=== PATIENT | female | born 2000 | race Caucasian/White ===

== ENCOUNTER 2022-05-13 17:57 | Day surgery (SDC) | payer OTHER, SELFPAY ==
[2022-05-13] VITALS (13 sets, daily range): BP systolic 105–126; BP diastolic 63–74; PULSE 72–96; RESP 16–20; TEMP 36.3–37.7; O2SAT 96–100; BMI 57.0
--- NOTE | 2022-05-13 18:26 | CRLHL7_ITS ---
For Patients: As a result of the Century Cures Act, medical imaging exams and procedure reports are released immediately into your electronic medical record. You may view this report before your referring provider. If you have questions, please contact your health care provider. INDICATION: Abdominal pain. TECHNIQUE: CT abdomen and pelvis acquired with 83 cc Isovue 370 IV contrast. COMPARISON: None. FINDINGS: Lower chest: Unremarkable. Liver: Unremarkable. Normal in size and attenuation. No suspicious masses. Gallbladder and bile ducts: Unremarkable. No stones or inflammation. No biliary ductal dilatation. Spleen: Unremarkable. Normal in size. No masses. Adrenal glands: Unremarkable. No nodules. Pancreas: Unremarkable. No mass or inflammation. Kidneys: Unremarkable. No suspicious masses, stones, or hydronephrosis. GI tract: Dilated appendix measuring 9 mm. Mild mural hyperenhancement and surrounding fat stranding. 7 mm appendicolith. Findings consistent with acute appendicitis. Small and large bowel are normal in caliber. Moderate colonic stool burden. Lymph nodes: No lymphadenopathy. Vasculature: Unremarkable. Omentum/Peritoneum/Abdominal Wall: Unremarkable. No free air or significant free fluid. Pelvis: Unremarkable. Bones: Unremarkable for age. IMPRESSION: Acute appendicitis. Please note that all CT scans at this facility use dose modulation, iterative reconstruction, and/or weight-based dosing when appropriate to reduce radiation dose to as low as reasonably achievable. Dictated by Harry Santos MD @ 05/13/2022 7:35:37 PM (Electronically Signed)
--- NOTE | 2022-05-13 18:27 | ED_ITS ---
HPI - Abdominal Pain General Chief Complaint: Abdominal Pain Stated Complaint: Vomiting Diarrhea Time Seen by Provider: 05/13/22 18:05 History of Present Illness HPI narrative: This 21-year-old female comes in with abdominal pain that began yesterday. She has vomiting with nausea and diarrhea. She does not report any fevers but states that she has felt hot and sweaty at times. She states that she has not taken much food but when she did try to eat it made her symptoms worse. She states that the pain is constant and it is worse with movement. Related Data Home Medications Medication Instructions Recorded Confirmed No Known Home Medications 05/13/22 05/13/22 Allergies Allergy/AdvReac Type Severity Reaction Status Date / Time amoxicillin Allergy Hives Verified 05/13/22 18:47 Penicillins Allergy Hives Verified 05/13/22 18:47 Review of Systems Status of ROS Reports: 10 or more systems reviewed and unremarkable except as noted in History and below Narrative Constitutional: No fevers, no weight gain or loss. Eyes: No discharge. No vision changes. HENT: No congestion, no sore throat, no ear pain. Cardiovascular: No chest pain, no palpitations. Respiratory: No shortness of breath, no wheezes, no cough. Gastrointestinal: Abdominal pain, nausea, vomiting, and diarrhea. Genitourinary: No dysuria, no hematuria. Musculoskeletal: Normal range of motion. Skin: No rashes, no pruritis. Neurological: No dizziness, weakness, sensory change, speech change. Endo/Heme/Allergies: No bruising or bleeding. No polydipsia. Pysch: no suicidality, no anxiety, no insomnia. All other systems reviewed and are negative. [facility] Medical History (Updated 05/13/22 @ 20:03 by Red Brady MD) No significant past medical history Surgical History (Updated 05/13/22 @ 18:17 by Paula Lewis RN) No significant past surgical history Social History Smoking Status: Never smoker Do you use any of these nicotine containing products: None Second hand tobacco smoke exposure: No How often do you have a drink containing alcohol: monthly or less How often do you have six or more drinks on one occasion: Never AUDIT-C Alcohol total score: 1 Non-prescribed substance use: denies use service: No Exam Narrative: Exam Narrative: Constitutional: Well-developed, well-nourished . HEENT: Normocephalic, atraumatic. Neck: Normal range of motion. Nontender. Supple. Heart: Regular. No murmurs. Normal rate. Intact distal pulses. Lungs: Clear to auscultation. No chest discomfort. No wheezes, rhonchi, or rales. Abdomen: Decreased bowel sounds. Diffuse abdominal pain. Rebound tenderness is present. Genitalia: Deferred. Back: No midline tenderness. Normal range of motion. Extremities: Normal range of motion. No injury. Skin: Intact. No rash. Warm. No erythema or pallor. Neurologic: No altered sensation. No weakness. Alert and oriented. Psychiatric: No suicidality. No anxiety or depression. No insomnia. Nursing notes and vitals signs are reviewed. Const: Vital Signs, click to edit/add: Vital Signs - 24 hr 05/13/22 18:08 Temperature 97.6 F Pulse Rate [Pulse Oximeter] 96 Respiratory Rate 18 Blood Pressure [Ri ght Upper Arm] 123/73 Pulse Oximetry 99 Oxygen Delivery Me thod Room Air Course Vital Signs Vital signs: Initial Vital Signs Temperature 97.6 F 05/13/22 18:08 Temperature Source Temporal Artery Scan 05/13/22 18:08 Pulse Rate 96 05/13/22 18:08 Pulse Rhythm 05/13/22 18:08 Respiratory Rate 18 05/13/22 18:08 Blood Pressure 123/73 05/13/22 18:08 Blood Pressure Mean 89 05/13/22 18:08 Blood Pressure Position Sitting 05/13/22 18:08 Pulse Oximetry 99 05/13/22 18:08 Oxygen Delivery Method 05/13/22 18:08 Vital Signs Temperature 97.6 F 05/13/22 18:08 Pulse Rate 96 05/13/22 18:08 Respiratory Rate 18 05/13/22 18:08 Blood Pressure 123/73 05/13/22 18:08 Pulse Oximetry 99 05/13/22 18:08 Oxygen Delivery Method 05/13/22 18:08 Temperature 97.6 F 05/13/22 18:08 Pulse Rate 96 05/13/22 18:08 Respiratory Rate 18 05/13/22 18:08 Blood Pressure 123/73 05/13/22 18:08 Pulse Oximetry 99 05/13/22 18:08 Oxygen Delivery Method 05/13/22 18:08 MDM - Abdominal Pain MDM Narrative Medical decision making narrative: This patient comes in with abdominal pain that is suspicious for an acute abdomen. An IV was established where she received medicines to help with her symptoms. This included Zofran and Dilaudid. CT imaging of the abdomen and pelvis does show evidence of acute appendicitis. I spoke with the [facility], Dr. Loving, who will arrange for appendectomy this evening. The patient last ate at 1:30 p.m., about 7 hours ago. Lab Data Labs: Lab Results 05/13/22 05/13/22 Range/Units 18:45 18:45 WBC 12.44 H (4.50-11.00) K/uL RBC 4.56 (4.00-5.20) m/uL Hgb 13.0 (12.0-16.0) gm/dL Hct 39.3 (33.0-51.0) % MCV 86 (80-100) fL MCH 29 (26-34) pg MCHC 33 (32-36) gm/dL RDW Coeff of Jose 13.5 (11.5-15.5) % Plt Count 265 (140-440) K/uL Neut % (Auto) 86.0 H (42.0-72.0) % Lymph % (Auto) 6.8 L (20-44) % [place] % (Auto) 6.2 (0.0-11.0) % Eos % (Auto) 0.1 (0.0-7.0) % Baso % (Auto) 0.2 (0.0-3.0) % Neut # (Auto) 10.70 H (1.7-7.0) K/uL Lymph # (Auto) 0.80 L (0.90-2.90) K/uL [place] # (Auto) 0.80 (0.00-0.90) K/UL Eos # (Auto) 0.00 (0.00-0.50) K/uL Baso # (Auto) 0.00 (0.00-0.30) K/uL Abs Immat Gran (auto) 0.09 (0.00-0.30) K/uL Sodium 136 (135-149) mmol/L Potassium 3.7 (3.6-5.1) mmol/L Chloride 100 (96-114) mmol/L Carbon Dioxide 26 (20-32) mmol/L BUN 11 (5-24) mg/dL Creatinine 0.9 (0.5-1.5) mg/dL Estimated Creat Clear 99.75 Estimated GFR 93 ml/min Glucose 122 H (60-115) mg/dL Calcium 9.6 (8.4-10.6) mg/dL Lipase 33 (23-300) U/L Imaging Data CT scan - abdomen: Radiologist's impression: GI tract: Dilated appendix measuring 9 mm. Mild mural hyperenhancement and surrounding fat stranding. 7 mm appendicolith. Findings consistent with acute appendicitis. Small and large bowel are normal in caliber. Moderate colonic stool burden. Acute appendicitis. Discharge Plan Discharge Clinical Impression: Acute appendicitis Patient Disposition: Admitted As Inpatient Condition: Unchanged Prescriptions: No Action No Known Home Medications Follow Up/Referrals: Provider,Not a Local [Primary Care Provider] -
[2022-05-13] MEDS: 0.9 % SODIUM CHLORIDE 1000 ml 1,000 ML IV (18:53)
[2022-05-13] MEDS: HYDROmorphone 0.5 mg/0.5 ml inj IVP ×2 (18:53→23:14)
[2022-05-13 18:54] LABS: Basophils Percent Auto 0.2 % (0.0-3.0); Eosinophils Percent Auto 0.1 % (0.0-7.0); Hematocrit 39.3 % (33.0-51.0); Immature Granulocytes Abs Auto 0.09 K/uL (0.00-0.30); Lymphocytes Percent Auto 6.8 % (20-44); Mean Corpuscular HGB Conc 33 gm/dL (32-36); Mean Corpuscular Hemoglobin 29 pg (26-34); Mean Corpuscular Volume 86 fL (80-100); Monocytes Percent Auto 6.2 % (0.0-11.0); Platelet Count* 265 K/uL (140-440); RDW Coefficient of Variation % 13.5 % (11.5-15.5); Red Blood Count 4.56 m/uL (4.00-5.20); White Blood Count* 12.44 K/uL (4.50-11.00)
[2022-05-13] MEDS: ONDANSETRON 2 MG/ML inj 4 MG IVP (19:00)
[2022-05-13 19:10] LABS: Chloride* 100 mmol/L (96-114)
[2022-05-13 19:11] LABS: Potassium* 3.7 mmol/L (3.6-5.1); Sodium* 136 mmol/L (135-149)
[2022-05-13 19:13] LABS: Carbon Dioxide* 26 mmol/L (20-32); Creatinine* 0.9 mg/dL (0.5-1.5); Est. Creatinine Clearance* 99.75; Estimated Glomerular Filt Rate 93 ml/min
[2022-05-13 19:14] LABS: Blood Urea Nitrogen* 11 mg/dL (5-24); Calcium* 9.6 mg/dL (8.4-10.6); Glucose* 122 mg/dL (60-115); Lipase* 33 U/L (23-300)
[2022-05-13 19:23] LABS: Slide Review Reflex No
--- NOTE | 2022-05-13 20:29 | ED.NURSE ---
VICE PRESIDENT TAX in room speaking to pt
[2022-05-13 21:06] LABS: SARS PCR* Negative SARS-CoV-2 (Negative)
[2022-05-13] MEDS: ERTAPENEM 1 GM in 0.9 % SODIUM CHLORIDE Mini-bag 100 ML IVPB (21:20)
[2022-05-13] MEDS: BUPIVACAINE 0.25% 30 ML INJECTION (22:00)
--- NOTE | 2022-05-13 22:10 | PM.GSHP ---
History of Present Illness History of Present Illness Date Seen: 05/13/22 Chief complaint: Vomiting Diarrhea Narrative: Roseanne Delcid is a 21 year old female who presented to the emergency department this evening with severe lower abdominal pain. She stated that the pain began yesterday afternoon in her upper stomach. She states that today it moved into her lower abdomen but is centered. She states that movement makes the pain worse and pain medications make it better. She has never had anything like this before. She has had nausea and vomiting as well as diarrhea. She has not had any dysuria. No chest pain or shortness of breath. No fevers. Review of Systems Status of ROS: Reports: 10 or more systems reviewed and unremarkable except as noted in History and below [facility] Medical History (Updated 05/13/22 @ 20:03 by Red Brady MD) No significant past medical history Surgical History (Updated 05/13/22 @ 18:17 by Paula Lewis RN) No significant past surgical history Social History (Updated 05/13/22 @ 22:11 by Mai Loving MD) Narrative: She works an office job. She is engaged to be . Smoking Status: Never smoker Do you use any of these nicotine containing products: None Second hand tobacco smoke exposure: No How often do you have a drink containing alcohol: monthly or less How often do you have six or more drinks on one occasion: Never AUDIT-C Alcohol total score: 1 Non-prescribed substance use: denies use service: No Meds Home Medications and Allergies Home Medications Medication Instructions Recorded Confirmed Type No Known Home Medications 05/13/22 05/13/22 History Allergies Allergy/AdvReac Type Severity Reaction Status Date / Time amoxicillin Allergy Hives Verified 05/13/22 18:47 Penicillins Allergy Hives Verified 05/13/22 18:47 Exam Narrative: Exam Narrative: General appearance: Alert, cooperative, and in no distress Eyes: PERRLA, eye lids clear, and sclera white HENT Head: Normocephalic Ears: External ears normal Pulmonary: Clear to auscultation bilaterally Cardiovascular Heart: Regular rate and rhythm Extremities: warm and well perfused Gastrointestinal Abdominal: Diffusely tender, however guarding and rebound in the lower abdomen, worse in the suprapubic area. Musculoskeletal: Extremities: Upper: Both upper extremities have normal joint range of motion and intact strength. Lower: Both lower extremities have normal joint range of motion and intact strength. Skin: Normal skin color, texture, and turgor. No rashes or lesions. Neurologic: No focal deficits Psychiatric: Alert, oriented, cooperative, normal affect. Const: Vital Signs, click to edit/add: Vital Signs - 24 hr 05/13/22 18:08 05/13/22 20:28 Temperature 97.6 F Pulse Rate [Pulse Oximeter] 96 82 Respiratory Rate 18 18 Blood Pressure [Ri ght Upper Arm] 123/73 126/74 Pulse Oximetry 99 99 Oxygen Delivery Me thod Room Air Room Air Results Results Labs: White blood cell count is elevated at 12.4. Remainder of her labs are within normal limits. COVID negative. Abdomen CT scan report/results: report reviewed ( Diagnostic Imaging Report Patient: Roseanne DelcidMR#: [id number]: [id number]:[id number]: EDService Date: 05/13/22Attending Dr: Ordering Physician: Red Brady M.D. Date of Service: 05/13/22 Procedure(s): CT abdomen pelvis w con Accession Number(s): [id number] cc: Rocael Brady) and image reviewed Assessment and Plan Assessment and plan (1) Acute appendicitis: Status: Acute Plan The patient is a 21-year-old female with acute appendicitis. We discussed that appendectomy is the preferred treatment for this. This can most often be done laparoscopically. We discussed risks and benefits of the procedure including but not limited to bleeding, need for conversion to open, risk of injury to other structures, need for possible bowel resection, and abscess formation. The patient understands that the risk of abscess is higher if the appendix is perforated. For that reason, we generally keep patient is in the hospital on IV antibiotics until vital signs and white blood cell count had normalized. We also discussed recovery including 2 weeks of lifting restrictions. She is agreeable to proceed with surgery emergently this evening.
--- NOTE | 2022-05-13 22:15 | P.GSOP_ITS ---
Operative Note Date of procedure: 05/13/22 Type of Procedure: Laparoscopic appendectomy Procedure Description: After discussing the risks and benefits of the procedure, the patient signed informed consent.? The operative site was marked and the patient was brought to the operating room and placed on the operating table in supine position.? Care was taken to pad the patient's pressure points.?? The patient was then intubated by anesthesia.?? The operative site was then prepped and draped in the usual sterile fashion.? A time-out was then performed. Entrance to the abdomen was obtained via a 5 mm optical trocar in the left upper quadrant. The abdomen was insufflated and briefly surveyed for any signs of injury. There were none. A 12 mm port was placed inferior to the umbilicus as well as a 5 mm port in the left lower quadrant. Both were done under direct v ision. The patient was then placed in Trendelenburg position with the right side up. The small bowel was gently moved out of the way and the appendix was in view. There was an area that appeared gangrenous, however it was not frankly perforated. A small amount of dissection was necessary to free the appendix from the surrounding pelvic attachments. The appendix was grasped and pulled into view. A mesenteric window was created between the base of the appendix and the mesoappendix. An Endo-BROCK purple load stapler was then used to transect the appendix at its base. A vascular load stapler was then used to divide the mesoappendix. The staple lines were inspected for bleeding. There was none. The appendix was then removed from the abdomen using an Endo-Catch bag. The specimen was sent to pathology. The 12 mm port site fascia was closed with 0 Vicryl. The abdomen was then desufflated. The skin was then closed with absorbable subcuticular suture. Sterile dressings were then applied. Instrument sponge and needle counts were correct at the end of the case. The patient was then woken and transported to the PACU in stable condition. ? Findings: Acute appendicitis with area of gangrene but no leslie perforation. Anesthesia: GETA Surgeon: Mai Loving MD Estimated blood loss (mL): 5 Condition: stable Disposition: PACU
--- NOTE | 2022-05-13 22:16 | W.ANESCHARGE ---
Anesthesia Charges Start Date/Time Anesthesia Start Date: 05/13/22 Anesthesia Start Time: 21:15 Stop Date/Time Anesthesia Stop Date: 05/13/22 Anesthesia Stop Time: 22:15 Summary Emergency: Yes
[2022-05-14] VITALS: BP 107/69; PULSE 86; RESP 16; TEMP 37.2; O2SAT 97
[2022-05-14 00:30] VITALS: BP 111/62; PULSE 74; RESP 16; TEMP 37.2; O2SAT 98
[2022-05-14] MEDS: LACTATED RINGERS 1000 ML 1,000 ML 125 ML IV (01:47)
[2022-05-14 04:05] VITALS: BP 102/54; PULSE 73; RESP 16; TEMP 37.1; O2SAT 98
--- NOTE | 2022-05-14 06:56 | PC.NURSE ---
Patient to unit at 2300. PRN Dilaudid x1 for 5/10 pain when first to the floor. Denies pain rest of night. Drinking and voiding. Declined food during noc. Denies N/V. Slept well during noc. 3 lap sites w/steri strips w/small amount of dried blood. BS hypoactive. Finance Shoaib at bedside.
[2022-05-14 09:25] VITALS: BP 116/74; PULSE 75; RESP 18; TEMP 37; O2SAT 97
--- NOTE | 2022-05-14 11:20 | PM.DS1 ---
DS: Providers Provider Date Seen: 05/14/22 Primary care physician: Not a Local Provider Attending Physician on discharge: Mai Loving MD DS: Diagnosis Discharge Diagnosis (1) Acute appendicitis: Status: Acute (2) S/P laparoscopic appendectomy: Status: Acute DS: Summary Status at Discharge Functional status at discharge: independent ambulation Overall status at discharge: patient is back to baseline Time Spent with Patient Time attestation: Total time spent providing and/or coordinating discharge services: Exam Narrative: Exam Narrative: General: Alert, oriented, no acute distress CV: Regular rate and rhythm Pulmonary: Breathing nonlabored on room air Abdomen: Incisions are clean and dry without erythema. Const: Vital Signs, click to edit/add: Vital Signs - 24 hr 05/13/22 18:08 05/13/22 20:28 05/13/22 22:15 Temperature 97.6 F 99.4 F Pulse Rate 86 Pulse Rate [Pulse Oximeter] 96 82 Pulse Rate [Right Pulse Oximeter] Respiratory Rate 18 18 20 Blood Pressure 108/63 Blood Pressure [Le ft Arm] Blood Pressure [Ri ght Upper Arm] 123/73 126/74 Pulse Oximetry 99 99 100 Oxygen Delivery Me thod Room Air Room Air Room Air 05/13/22 22:20 05/13/22 22:25 05/13/22 22:30 Temperature Pulse Rate 86 78 77 Pulse Rate [Pulse Oximeter] Pulse Rate [Right Pulse Oximeter] Respiratory Rate 16 16 16 Blood Pressure 105/66 114/67 118/71 Blood Pressure [Le ft Arm] Blood Pressure [Ri ght Upper Arm] Pulse Oximetry 99 99 98 Oxygen Delivery Vt thod Room Air Room Air Room Air 05/13/22 22:35 05/13/22 22:40 05/13/22 22:45 Temperature 99.9 F H Pulse Rate 75 72 75 Pulse Rate [Pulse Oximeter] Pulse Rate [Right Pulse Oximeter] Respiratory Rate 16 16 16 Blood Pressure 115/70 117/69 118/66 Blood Pressure [Le ft Arm] Blood Pressure [Ri ght Upper Arm] Pulse Oximetry 98 98 99 Oxygen Delivery Me thod Room Air Room Air Room Air 05/13/22 23:00 05/13/22 23:15 05/13/22 23:30 Temperature 97.3 F L 97.3 F L 97.3 F L Pulse Rate Pulse Rate [Pulse Oximeter] Pulse Rate [Right Pulse Oximeter] 75 80 77 Respiratory Rate 16 16 16 Blood Pressure Blood Pressure [Le ft Arm] 116/72 116/66 113/65 Blood Pressure [Ri ght Upper Arm] Pulse Oximetry 98 96 97 Oxygen Delivery Me thod Room Air Room Air Room Air 05/13/22 23:45 05/14/22 00:00 05/14/22 00:30 Temperature 99.0 F 99.0 F 99.0 F Pulse Rate Pulse Rate [Pulse Oximeter] Pulse Rate [Right Pulse Oximeter] 80 86 74 Respiratory Rate 16 16 16 Blood Pressure Blood Pressure [Le ft Arm] 114/64 107/69 111/62 Blood Pressure [Ri ght Upper Arm] Pulse Oximetry 98 97 98 Oxygen Delivery Me thod Room Air Room Air Room Air 05/14/22 04:05 05/14/22 09:25 05/14/22 09:25 Temperature 98.7 F 98.6 F Pulse Rate Pulse Rate [Pulse Oximeter] Pulse Rate [Right Pulse Oximeter] 73 75 75 Respiratory Rate 16 18 18 Blood Pressure Blood Pressure [Le ft Arm] 102/54 L 116/74 Blood Pressure [Ri ght Upper Arm] Pulse Oximetry 98 97 Oxygen Delivery Me thod Room Air Room Air DS: Data Data Completed and Pending Labs on day of discharge: Labs from last 24 hours 05/13/22 05/13/22 05/13/22 Unknown 20:09 18:45 WBC RBC Hgb Hct MCV MCH MCHC RDW Coeff of Jose Plt Count Neut % (Auto) Lymph % (Auto) [place] % (Auto) Eos % (Auto) Baso % (Auto) Neut # (Auto) Lymph # (Auto) [place] # (Auto) Eos # (Auto) Baso # (Auto) Abs Immat Gran (auto) Sodium 136 Potassium 3.7 Chloride 100 Carbon Dioxide 26 BUN 11 Creatinine 0.9 Estimated Creat Clear 99.75 Estimated GFR 93 Glucose 122 H Calcium 9.6 Lipase 33 SARS-CoV-2 (PCR) Negative SARS-CoV-2 Surg PTH (Off-Site) Pending 05/13/22 18:45 WBC 12.44 H RBC 4.56 Hgb 13.0 Hct 39.3 MCV 86 MCH 29 MCHC 33 RDW Coeff of Jose 13.5 Plt Count 265 Neut % (Auto) 86.0 H Lymph % (Auto) 6.8 L [place] % (Auto) 6.2 Eos % (Auto) 0.1 Baso % (Auto) 0.2 Neut # (Auto) 10.70 H Lymph # (Auto) 0.80 L [place] # (Auto) 0.80 Eos # (Auto) 0.00 Baso # (Auto) 0.00 Abs Immat Gran (auto) 0.09 Sodium Potassium Chloride Carbon Dioxide BUN Creatinine Estimated Creat Clear Estimated GFR Glucose Calcium Lipase SARS-CoV-2 (PCR) Surg PTH (Off-Site) Discharge Plan Discharge Disposition: Home, Self-Care Discharging Surgeon: Mai Loving Follow-Up Appointment: 2 weeks Prescriptions: New hydrocodone-acetaminophen 5-325 mg tablet 1 tab PO Q6H PRN (Reason: pain) Qty: 14 0RF Activity Level: No strenuous activity Activity Detail: No lifting more than 20 lb for 2 week Discharge Diet: Regular Patient Instructions: Surgical Site Infections (DC), General Anesthesia (DC), Laparoscopic Appendectomy (DC), Post-Operative Instructions: Appendectomy Additional Instructions: Wound care: Your sutures are under the skin and will dissolve over time. Leave steri strips (white bandages) over incisions until they fall off (or remove after 7 days). OK to shower tomorrow but avoid bathing, soaking or swimming for 2 weeks. Pat the incisions dry. No need to wash or scrub the area. Apply ice to the area as needed for swelling. It is also OK to use a heating pad if this provides more comfort to you. Pain control: You were prescribed a pain medication. This medication contains acetaminophen (Tylenol). If you are taking your prescribed pain pills 4 times daily, do not take additional acetaminophen. As your pain improves, you can try taking acetaminophen instead of the prescribed pain pill. It is ok to take Ibuprofen or Naproxen (per directions on packaging). This medication helps with inflammation and swelling. Take an [id number] stool softener while you are taking prescribed pain medications to help alleviate constipation. I recommend Senna and/or Colace. Take as directed on package. If you have not had a bowel movement in 3 days, try taking Miralax as directed on the package. All of these are available over the counter. Follow-up Follow up with Dr. Loving in 2-3 weeks Please call if you are experiencing severe pain, nausea, vomiting, difficulty urinating, fever or have not had bowel movement in 4 days after surgery. Forms: Work/Release Restrictions Follow-up: Provider,Not a Local [Primary Care Provider] - Discharge Orders: Discharge Order (Routine); Ordered 05/13/22 Ordered By: Mai Loving
--- NOTE | 2022-05-14 15:23 | PC.NURSE ---
0700 shift: Pt. sleepy, recovering from anesthesia. Denied nausea, need for pain medicine, or food when offered. Lap sites x3 to left abdomen and umbilicus intact w/old drainage. Up at first w/SBA to restroom, but later independently. Seen by Dr. Loving, then orders received for discharge. IV removed w/tip intact, discharge information given verbally as well as printed. All papers signed, returned to chart. Pt. left via wheelchair @ 1235 w/significant other and her belongings.
== END 2022-05-14 12:35 | disposition home or self-care (01) ==
LOC: ED 20:03 → SS 20:14 → MEDSURG 05-14 11:24
PROVIDERS: Emergency Provider Emergency Medicine Emergency Medical Services; Visit Provider Surgery
PROC: 0DTJ4ZZ Resection of Appendix, Percutaneous Endoscopic Approach (ICD-10-PCS; CPT 44970; principal; 2022-05-13 21:00)
DX: K35.80 Unspecified acute appendicitis (principal)
CPT/HCPCS: 44970; 00840; 36415; 74177; 80048; 81001; 83690; 85025; 87635; 88304; 99140; 99284; 99285; J1100; J1170; J1335; J2250; J2405; J2704; J3010; J3490; J7030; J7120; Q9967

== ENCOUNTER 2024-01-05 07:59 | Outpatient (CLI) | payer OTHER, SELFPAY ==
--- NOTE | 2024-01-05 08:15 | US_ITS ---
Patient: JOHN FISHER Facility:?[facility] Patient ID:?[id number] Site Patient ID:?[id number]. Site :?[id number] Study:?US-OB Pelvis DATING AND VIABILITY-01/05/2024 8:36:55 AM Ordering Physician:?MARIA R ESTEVES Final Report: INDICATION: First trimester scan, establish dates. COMPARISON: None. TECHNIQUE: Real-time lyons-scale imaging of the pelvis was performed. FINDINGS: Sonographic imaging demonstrates a single living intrauterine gestation. The embryo demonstrates a regular cardiac rate measuring 173 beats per minute. The embryo`s crown-rump length measurement of 2.3 cm corresponds to a gestational age of 9 weeks 0 days with a sonographic due date of 08/09/2024. There is a normal-appearing yolk sac. There are no gross abnormalities noted within the embryo at this early state of development. The gestational sac has a normal appearance. There is 1.4 x 0.7 x 0.8 cm perigestational hemorrhage. The amount of fluid within the sac appears appropriate for gestational age. The cervix is closed. The myometrium appears normal. Left ovary is normal. Corpus luteal cyst right ovary there are no suspicious fluid collections noted in the cul-de-sac. IMPRESSION: Single living intrauterine measuring 9 weeks 0 days and sonographic due date of 08/09/2024. Inferior subchorionic hemorrhage measuring 1.4 x 0.7 x 0.8 cm. Dictated by Romeo Urbina MD @ 01/05/2024 9:07:58 AM Signed by:?Romeo Urbina MD @01/05/2024 9:07:58 AM (Electronic Signature)
== END 2024-01-05 08:00 | disposition home or self-care (01) ==
LOC: US 08:00
PROVIDERS: Visit Provider Physician Assistant
DX: Z34.91 Encounter for supervision of normal pregnancy, unspecified, first trimester (principal); O20.9 Hemorrhage in early pregnancy, unspecified; Z3A.09 9 weeks gestation of pregnancy
CPT/HCPCS: 76817; 86703; 86706; 86803; 86850; 86900; 86901; 87340; 87491; 87591

== ENCOUNTER 2024-01-05 09:30 | Outpatient (CLI) | payer OTHER, SELFPAY ==
[2024-01-05 12:57] LABS: Chlamydia DNA Amplified* NOT DETECTED (No Detected); GC DNA Amplified* NOT DETECTED (No Detected)
== END 2024-01-05 09:31 | disposition home or self-care (01) ==
PROVIDERS: PCP Physician Assistant; Visit Provider Physician Assistant
DX: Z34.81 Encounter for supervision of other normal pregnancy, first trimester (principal)
CPT/HCPCS: 86592; 86703; 86704; 86706; 86762; 86787; 86803; 86850; 86900; 86901; 87086; 87340; 87491; 87591

== ENCOUNTER 2024-02-07 18:09 | Emergency (ER) | payer OTHER, SELFPAY ==
[2024-02-07 18:11] VITALS: BP 134/83; PULSE 81; RESP 16; TEMP 36.7; O2SAT 100; BMI 27.4
--- NOTE | 2024-02-07 18:31 | ED.GENADULT ---
HPI - General Adult General Date Seen: 02/07/24 Chief complaint: Eye Problems Stated complaint: R eye injury, blurring vision Time Seen by Provider: 02/07/24 18:10 Source: patient Mode of arrival: ambulatory Limitations: no limitations History of Present Illness HPI narrative: Patient is a 23-year-old woman who was working outside and was hit in the right eye with a tree branch. She says she was wearing her glasses but the branch went underneath them. She notes that her vision is somewhat blurry, eye is painful. Related Data Home Medications Medication Instructions Recorded Confirmed docosahexaenoic acid 200 mg mg PO 01/05/24 02/02/24 capsule ( DHA) Allergies Allergy/AdvReac Type Severity Reaction Status Date / Time amoxicillin Allergy Hives Verified 02/02/24 08:22 Penicillins Allergy Hives Verified 02/02/24 08:22 [facility] Medical History No significant past medical history Surgical History S/P laparoscopic appendectomy ?Z90.49 - Acquired absence of other specified parts of digestive tract (ICD-10) Social History (Updated 01/05/24 @ 13:34 by Xiomy Davila PA-C) Narrative: Occupation: Office work. Marital status: . Christianity/cultural needs: no. Chemical or radiation exposure: no. Pre- tobacco use: no. Pre- alcohol use: no. Current tobacco use: no. Current alcohol use: no. Recreational drug use: no. Dietary restrictions: no. Blood transfusion acceptable in an emergency: yes. PSYCHOSOCIAL HISTORY: History of depression or currently depressed: no. Current or past physical, emotional, or sexual mistreatment: no. Problems that will make it hard to make it to appointments: no. What is your current living situation?: I presently have a place to live Problems where you live: declined to answer In the past 12 months, utilities in danger of being shut off: no In past 12 months, lack of transportation kept you from medical appts, meetings, work, or getting things needed for daily living: no In the past 12 mos, have been you worried that your food would run out before you had money to buy more?: never true In the past 12 mos, the food you bought just didn't last and you didn't have money to buy more?: never true Smoking Status: Never smoker Do you use any of these nicotine containing products: None Second hand tobacco smoke exposure: No How often do you have a drink containing alcohol: monthly or less How often do you have six or more drinks on one occasion: Never AUDIT-C Alcohol total score: 1 Non-prescribed substance use: denies use How often does anyone, including family, friends and others, physically hurt you: never How often does anyone, including family, friends and others, insult or talk down to you: never How often does anyone, including family, friends and others, threaten you with harm: never How often does anyone, including family, friends and others, scream or curse at you: never Little interest or pleasure in doing things: not at all Feeling down, depressed, or hopeless: not at all service: No Exam Narrative: Exam Narrative: Vital signs reviewed Visual acuity pending. Head: Normocephalic, atraumatic. Eyes: She has some conjunctival injection on the right. Suggestion of a corneal abrasion. No foreign body. Extraocular movements are full. Small scratch on the right eyelid Const: Vital Signs, click to edit/add: Vital Signs - 24 hr 02/07/24 18:11 Temperature 98.1 F Pulse Rate [Pulse Oximeter] 81 Respiratory Rate 16 Blood Pressure [Ri ght Upper Arm] 134/83 Pulse Oximetry 100 Oxygen Delivery Me thod Room Air Documenting provider has reviewed patient's vital signs: yes Course Course ED Course: Pain resolved with tetracaine drops. With fluorescein, a corneal abrasion is visualized. Visual acuity was checked, 20/20 on the left, 20/25 on the right. Recommend antibiotic eyedrops, eye clinic follow-up if not significantly improved over the next 24-48 hours. Tylenol if needed. Return to the ER for severe uncontrolled pain, significant photophobia or vision changes. Vital Signs Vital signs: Initial Vital Signs Temperature 98.1 F 02/07/24 18:11 Temperature Source Temporal Artery Scan 02/07/24 18:11 Pulse Rate 81 02/07/24 18:11 Respiratory Rate 16 02/07/24 18:11 Blood Pressure 134/83 02/07/24 18:11 Blood Pressure Mean 100 02/07/24 18:11 Blood Pressure Position Sitting 02/07/24 18:11 Pulse Oximetry 100 02/07/24 18:11 Oxygen Delivery Method Room Air 02/07/24 18:11 Vital Signs Temperature 98.1 F 02/07/24 18:11 Pulse Rate 81 02/07/24 18:11 Respiratory Rate 16 02/07/24 18:11 Blood Pressure 134/83 02/07/24 18:11 Pulse Oximetry 100 02/07/24 18:11 Oxygen Delivery Method Room Air 02/07/24 18:11 Temperature 98.1 F 02/07/24 18:11 Pulse Rate 81 02/07/24 18:11 Respiratory Rate 16 02/07/24 18:11 Blood Pressure 134/83 02/07/24 18:11 Pulse Oximetry 100 02/07/24 18:11 Oxygen Delivery Method Room Air 02/07/24 18:11 Discharge Plan Discharge Clinical Impression: Corneal abrasion, right Patient Disposition: Home, Self-Care Condition: Stable Instructions: Corneal Abrasion (DC) Additional Instructions: Antibiotic eyedrops as prescribed. You can also use lubricant eye drops that I would recommend against drops like Visine. Tylenol as needed. Follow-up with your Eye Clinic if not significantly improved in the next 24-48 hours. Return at any time for severe uncontrolled pain, significant light sensitivity, or other worsening symptoms. Activity Level: No Restrictions Discharge Diet: Regular Prescriptions: No Action DHA 200 mg capsule PO Follow Up/Referrals: Provider,Not a Local [Primary Care Provider] - Stand Alone Forms: [employer] Chinta[employer] Info Instructions
== END 2024-02-07 18:59 | disposition home or self-care (01) ==
LOC: ED 18:46
PROVIDERS: Emergency Provider Emergency Medicine
DX: S05.01XA Injury of conjunctiva and corneal abrasion without foreign body, right eye, initial encounter (principal); W22.8XXA Striking against or struck by other objects, initial encounter
CPT/HCPCS: 99283; A9270

== ENCOUNTER 2024-03-29 08:36 | Outpatient (CLI) | payer OTHER, SELFPAY ==
--- NOTE | 2024-03-29 08:45 | CRLHL7_ITS ---
For Patients: As a result of the Century Cures Act, medical imaging exams and procedure reports are released immediately into your electronic medical record. You may view this report before your referring provider. If you have questions, please contact your health care provider. INDICATION: Evaluate anatomy. COMPARISON: none TECHNIQUE: Real time lyons scale imaging of the fetus was performed. FINDINGS: Sonographic imaging demonstrates a single living intrauterine gestation. Fetus demonstrates a regular cardiac rate of 150 beats per minute. Fetus has a transverse position with head positioned on the mother`s right side. The placenta lies posterior without evidence of placenta previa. Amniotic fluid volume appears normal. Single deepest vertical pocket: 3.7 cm. The cervix is closed and measures 3.1 cm in length. The composite ultrasound gestational age is calculated at 20 weeks and 6 days with an estimated sonographic due date of 08/10/2024. The estimated weight is 402 grams which lies at the 53 %. The following biometric measurements were obtained: Biparietal diameter: 4.6 cm/19 weeks and 6 days 10% Head circumference: 17.8 cm/20 weeks and 2 days 14% Abdominal circumference: 16.9 cm/21 weeks and 6 days 72% Femur length: 3.4 cm/20 weeks and 4 days 28% The HC/AC ratio measures: 1.06 On anatomic survey, there is a normal appearance of the cerebral ventricles, cavum septi pellucidi, cisterna magna and cerebellum. The nose, lips, and facial profile appear normal. The cervical, thoracic and lumbar spine are well visualized and appear normal. There is a normal four-chamber heart view and the left and right ventricular outflow tracts appear normal. The diaphragm and stomach appear normal. The kidneys and bladder also appear normal. There is a normal three-vessel cord and cord insertion site. The four extremities appear normal. IMPRESSION: Normal OB ultrasound exam with concordance of clinical and sonographic dating with estimated gestational age of 20 weeks and 6 days and estimated delivery date of 08/10/2024. No intrinsic abnormalities noted on anatomic survey. Dictated by Zoltan Prieto MD @ 03/30/2024 2:20:11 PM (Electronically Signed)
== END 2024-03-29 08:37 | disposition home or self-care (01) ==
PROVIDERS: Visit Provider Advanced Practice Midwife
DX: Z34.92 Encounter for supervision of normal pregnancy, unspecified, second trimester (principal); Z3A.20 20 weeks gestation of pregnancy
CPT/HCPCS: 76805

== ENCOUNTER 2024-05-31 08:27 | Outpatient (CLI) | payer OTHER, SELFPAY | END 2024-05-31 08:28 | disposition home or self-care (01) | LOC: NFLDREF 06-03 17:04 | PROVIDERS: Visit Provider Midwife | DX: Z34.81 Encounter for supervision of other normal pregnancy, first trimester (principal) | CPT/HCPCS: 86592 ==

== ENCOUNTER 2024-07-05 08:44 | Outpatient (CLI) | payer OTHER, SELFPAY ==
[2024-07-06 11:16] LABS: Strep B DNA Probe Negative (Negative)
[2024-07-06 12:31] LABS: Strep B Susceptibility Needed? No
== END 2024-07-05 08:45 | disposition home or self-care (01) ==
LOC: NFLDREF 08:44
PROVIDERS: Visit Provider Advanced Practice Midwife
DX: Z34.93 Encounter for supervision of normal pregnancy, unspecified, third trimester (principal); Z3A.35 35 weeks gestation of pregnancy
CPT/HCPCS: 87081; 87653

== ENCOUNTER 2024-08-02 08:37 | Outpatient (CLI) | payer OTHER, SELFPAY ==
[2024-08-03 10:56] LABS: Strep B DNA Probe Negative (Negative)
[2024-08-03 10:58] LABS: Strep B Susceptibility Needed? No
== END 2024-08-02 08:38 | disposition home or self-care (01) ==
LOC: NFLDREF 08:37
PROVIDERS: Visit Provider Midwife
DX: Z34.93 Encounter for supervision of normal pregnancy, unspecified, third trimester (principal); Z3A.39 39 weeks gestation of pregnancy
CPT/HCPCS: 87081; 87653

== ENCOUNTER 2024-08-16 15:52 | Inpatient (IN) | payer OTHER, SELFPAY ==
[2024-08-16 16:15] VITALS: PULSE 89; O2SAT 97
[2024-08-16 16:16] VITALS: BP 122/75; PULSE 86; TEMP 36.8
[2024-08-16 16:27] VITALS: BMI 35.6
--- NOTE | 2024-08-16 17:19 | W.PM.LDBA ---
Subjective History of Present Illness Date Seen: 08/16/24 Narrative: Roseanen is being admitted to Labor and Delivery for IOL. She is a 23 year old at 41.0 weeks gestation. Her full history and physical was dictated by Lisa Sheehan CNM on 07/19/24. Please see this for details. We discussed in detail methods for induction including Cytotec, Cook catheter, Pitocin, and AROM. Risks and benefits of each were discussed and she would like to proceed with vaginal Cytotec with plan to start Pitocin titration after. Specific Issues/Plans Gender: [place] H&P 07/19/24 by Lisa Sheehan CNM # Nausea and vomiting vitamin B6 and Unisom, metoclopramide # BPD 10%, AC 72%. Referral sent for Level 2 U/S. NIPT negative GBS done at 35 weeks as pt could not return until 37 wks, repeated at 39w to avoid expiration 1st tri US 01/05/2024 9w0d SLIUP consistent with dating. RICK 08/09/24 Lev 2 US 04/10/2024 22w4d Single fetus seen. Dating consistent with LMP and previous US. Normal anatomy findings of single fetus and mother. Cervix long and closed. RICK 08/09/24 Patient declined Pap at new OB, Pap 06/21/2024 PHQ-9=5 BESSY-7=0 TDAP: 05/31/2024 Flu: 06/21/2024 RSV: 06/21/2024 COVID: 2020 OB - Problem Based A/P Additional Plan (1) Encounter for induction of labor: Status: Acute (2) Post term , 41 weeks: Status: Acute Plan ASSESSMENT:? at 41.0 weeks gestation? GBS negative? Uncomplicated ? Postterm IOL? Blood type:?O+ ?? PLAN:? 1. Reviewed risks and benefits of IOL with Pitocin vs Cytotec. Pt prefers Cytotec. Pitocin to follow if needed.? 2. Desires water . Consent signed. Hep C negative.? 3. Candidate for analgesia of choice. Planning unmedicated .? 4. Anticipate ? 5. Expectant management at this time.? 6. IV and monitoring plan pre unit policy? Delivery/Labor/Induction Plan Plan: induction Induction method: per misoprostol protocol OB Result Labs Blood Type: O (+) positive Rubella: immune RPR/VDLR: nonreactive GBS Status: negative HBsAG: negative OB Exam Physical Exam Vital signs: Temp Pulse BP Pulse Ox 98.2 F 86 122/75 97 08/16/24 16:16 08/16/24 16:16 08/16/24 16:16 08/16/24 16:15 Narrative: Psychiatric:? Alert and oriented x3? HEENT:? Normocephalic, atraumatic? Neck:? Supple without adenopathy or thyromegaly? Lungs:? Clear to auscultation bilaterally? Heart:? Regular rate and rhythm, no murmur, rub or gallop? Abdomen:? Soft, nontender, and gravid? Extremities:? No edema or erythema? Detailed Labor and Delivery Exam Patient Gravid: Yes Dilation (cm): 1 Effacement (%): 0 Cervix position: anterior Consistency: medium Contraction Frequency: occasionally but pt denies feeling them as any more than tightening. Contraction intensity: Mild Fetus (Single) Station: -3 Amniotic Membrane Status: intact Heart Rate Baseline: 130 Monitor Accelerations: Present Monitor Decelerations: None Refrigeration Plant Operator Variability: Moderate (6-25) Additional Findings Additional findings: Difficult to interpret tracing initially. Baby was very active. It was determined that baseline with 130 with prolonged accelerations and not decelerations. Will monitor for a reactive tracing before beginning Cytotec.
[2024-08-16] MEDS: miSOPROStoL 25 MCG/0.25 TABLET VAGINAL ×2 (17:35→20:19)
[2024-08-16 18:30] LABS: Basophils Absolute Auto 0.05 K/uL (0.00-0.30); Basophils Percent Auto 0.5 % (0.0-3.0); Eosinophils Absolute Auto 0.05 K/uL (0.00-0.50); Eosinophils Percent Auto 0.5 % (0.0-7.0); Hematocrit 39.2 % (33.0-51.0); Hemoglobin* 12.9 gm/dL (12.0-16.0); Immature Granulocytes Abs Auto 0.32 K/uL (0.00-0.30); Immature Granulocytes Pct Auto 2.9 %; Lymphocytes Percent Auto 15.8 % (20-44); Mean Corpuscular HGB Conc 33 gm/dL (32-36); Mean Corpuscular Hemoglobin 29 pg (26-34); Mean Corpuscular Volume 89 fL (80-100); Monocytes Percent Auto 5.6 % (0.0-11.0); Neutrophils Percent Auto 74.7 % (42.0-72.0); Platelet Count* 180 K/uL (140-440); RDW Coefficient of Variation % 14.9 % (11.5-15.5); Red Blood Count 4.43 m/uL (4.00-5.20); White Blood Count* 10.92 K/uL (4.50-11.00)
[2024-08-16 18:34] LABS: Slide Review Reflex No
[2024-08-16 20:00] VITALS: BP 131/73; PULSE 75; RESP 17; TEMP 37
[2024-08-17] VITALS (92 sets, daily range): BP systolic 110–131; BP diastolic 55–84; PULSE 54–95; RESP 16–20; TEMP 36.7–37.1; O2SAT 89–100
[2024-08-17] MEDS: miSOPROStoL 25 MCG/0.25 TABLET VAGINAL (00:33)
[2024-08-17 03:38] LABS: Basophils Percent Auto 0.3 % (0.0-3.0); Eosinophils Percent Auto 0.6 % (0.0-7.0); Hematocrit 38.4 % (33.0-51.0); Hemoglobin* 12.8 gm/dL (12.0-16.0); Immature Granulocytes Pct Auto 2.5 %; Lymphocytes Percent Auto 20.5 % (20-44); Mean Corpuscular HGB Conc 33 gm/dL (32-36); Mean Corpuscular Hemoglobin 29 pg (26-34); Mean Corpuscular Volume 88 fL (80-100); Monocytes Percent Auto 5.8 % (0.0-11.0); Neutrophils Percent Auto 70.3 % (42.0-72.0); Platelet Count* 180 K/uL (140-440); RDW Coefficient of Variation % 15.1 % (11.5-15.5); Red Blood Count 4.39 m/uL (4.00-5.20); White Blood Count* 11.67 K/uL (4.50-11.00)
[2024-08-17] MEDS: LACTATED RINGERS 1000 ML 1,000 ML 500 ML IV (03:38)
[2024-08-17 04:06] LABS: Slide Review Reflex No
[2024-08-17] MEDS: MORPHINE 10 MG/ML inj IM (07:27)
[2024-08-17] MEDS: ONDANSETRON 2 MG/ML inj 4 MG IV ×2 (07:27→15:23)
[2024-08-17] MEDS: hydrOXYzine pamoate 25 MG CAPSULE 100 MG PO (07:28)
[2024-08-17] MEDS: OXYTOCIN 30 unit/500 ML in NS 30 UNIT/500 ML BAG IVPB (09:22)
[2024-08-17] MEDS: LACTATED RINGERS 1000 ML 1,000 ML 125 ML IV ×2 (12:02→18:23)
--- NOTE | 2024-08-17 12:29 | P.OBPN_ITS ---
Subjective Date Seen: 08/17/24 Narrative: Roseanne slept poorly overnight. She declined Vistaril and/or Morphine over night but was unable to sleep. Overnight she was received a total of 3 doses of Cytotec but then was lena too frequently for additional doses. Early this am she was cramping uncomfortably, vomiting and was not coping well. She was finally convinced of the benefits of the medications was agreeable to them so she could sleep. Around 0730 she did agree to therapeutic sleep and contractions were palpating moderate at that time. She had made some cervical supervisor policy change clerks night and was found to be 1.5/75/-2 per RN exam. Due to the frequent but irregular contractions it was decided to switch to Pitocin titration. She was sleeping soundly when evaluations were planned around 0800 and 1200 so it was decided not to wake her as the RN had discussed Pitocin in depth in addition to our discussion on it at the start of her induction. Objective Vital Signs: Last Vital Signs Temp 98.7 F 08/17/24 12:03 Pulse 75 08/17/24 12:00 Resp 20 08/17/24 05:26 BP 115/56 L 08/17/24 12:00 Pulse Ox 97 08/17/24 05:25 Pelvic Exam Dilation (cm): 1.5 Effacement (%): 75 Station: -2 Contractions Monitor mode: External Contraction Frequency: 1-4 Contraction pattern: Irregular Contraction intensity: Moderate Pitocin Rate (mU/min): 5 Assessment Assessment: induction ongoing Station: -2 Status: Category l Heart Rate Baseline: 125 Geropsychologist Variability: Moderate (6-25) Monitor Accelerations: Present Monitor Decelerations: None Plan Plan: ASSESSMENT:? at 41.1 weeks gestation? GBS negative? Uncomplicated ? Postterm IOL? Blood type:?O+ ?? PLAN:? 1. Pitocin titration initiated. Continue with titration as appropriate 2. Desires water . Consent signed. Hep C negative.? 3. Candidate for analgesia of choice. Planning unmedicated .? 4. Anticipate ? 5. Expectant management at this time.? 6. IV and monitoring plan per unit policy? 7. Encourage and assist with position changes to promote physiologic labor and after she has rested.
[2024-08-17] MEDS: LIDOCAINE 2% (PF) 5 ML VIAL EPIDURAL (18:14)
[2024-08-17] MEDS: ROPIVACAINE 0.2% 100 ml 100 ML 12 MG EPIDURAL (18:15)
--- NOTE | 2024-08-17 18:25 | PM.ANBPRC ---
[facility] Medical History No significant past medical history Surgical History S/P laparoscopic appendectomy ?Z90.49 - Acquired absence of other specified parts of digestive tract (ICD-10) Family History (Updated 07/19/24 @ 08:29 by Viki Sheehan CNM) Father Diabetes, Onset Age: 49 Mother High cholesterol Paternal Grandmother Breast cancer, Onset Age: 30 Social History (Updated 01/05/24 @ 13:34 by Xiomy Davila PA-C) Narrative: Occupation: Office work. Marital status: . Anglican/cultural needs: no. Chemical or radiation exposure: no. Pre- tobacco use: no. Pre- alcohol use: no. Current tobacco use: no. Current alcohol use: no. Recreational drug use: no. Dietary restrictions: no. Blood transfusion acceptable in an emergency: yes. PSYCHOSOCIAL HISTORY: History of depression or currently depressed: no. Current or past physical, emotional, or sexual mistreatment: no. Problems that will make it hard to make it to appointments: no. What is your current living situation?: I presently have a place to live Problems where you live: no known problems In the past 12 months, utilities in danger of being shut off: no In the past 12 mos, have been you worried that your food would run out before you had money to buy more?: never true In the past 12 mos, the food you bought just didn't last and you didn't have money to buy more?: never true Smoking Status: Never smoker Do you use any of these nicotine containing products: None Second hand tobacco smoke exposure: No How often do you have a drink containing alcohol: monthly or less How often do you have six or more drinks on one occasion: Never AUDIT-C Alcohol total score: 1 Non-prescribed substance use: denies use How often does anyone, including family, friends and others, physically hurt you: never How often does anyone, including family, friends and others, insult or talk down to you: never How often does anyone, including family, friends and others, threaten you with harm: never How often does anyone, including family, friends and others, scream or curse at you: never service: No Meds Home Medications and Allergies Home Medications ?Medication ?Instructions ?Recorded ?Confirmed ?Type docosahexaenoic acid 200 mg 200 mg PO DAILY PRN 01/05/24 08/16/24 History capsule ( DHA) Allergies Allergy/AdvReac Type Severity Reaction Status Date / Time amoxicillin Allergy Hives Verified 08/09/24 08:20 Penicillins Allergy Hives Verified 08/09/24 08:20 Results Labs Labs: Laboratory Results - last 24 hr 08/16/24 08/17/24 18:21 03:20 WBC 10.92 11.67 H RBC 4.43 4.39 Hgb 12.9 12.8 Hct 39.2 38.4 MCV 89 88 MCH 29 29 MCHC 33 33 RDW Coeff of Jose 14.9 15.1 Plt Count 180 180 Neut % (Auto) 74.7 H 70.3 Lymph % (Auto) 15.8 L 20.5 Mitchell % (Auto) 5.6 5.8 Eos % (Auto) 0.5 0.6 Baso % (Auto) 0.5 0.3 Neut # (Auto) 8.20 H 8.20 H Lymph # (Auto) 1.70 2.40 Mitchell # (Auto) 0.60 0.70 Eos # (Auto) 0.05 0.10 Baso # (Auto) 0.05 0.00 Abs Immat Gran (auto) 0.32 H 0.30 Imm/Tot Granulo (auto) 2.9 2.5 Blood Type O Positive O Positive Antibody Screen NEGATIVE NEGATIVE Vital Signs Vital Signs: Last Vital Signs Temp 98.7 F 08/17/24 12:03 Pulse 92 08/17/24 18:23 Resp 20 08/17/24 05:26 BP 113/70 08/17/24 18:23 Pulse Ox 98 08/17/24 18:22 Weight: 106.322 kg Height: 172.72 cm Anesthesia Procedures Epidural Insertion Patient Location: OB Start Time: 17:50 Stop Time: 18:50 Start Date: 08/17/24 Stop Date: 08/17/24 Reason for Block: procedure for pain Patient Position: sitting Performed By: Bharat Gan Preanesthetic Checklist: IV checked, risks and benefits discussed, monitors and equipment checked, pre-op evaluation, timeout performed and anesthesia consent Prep: chlorhexidine gluconate Monitoring: blood pressure monitoring, continuous pulse oximetry and heart rate Approach: midline Vertebral Space: lumbar (1-5) Epidural Technique: HEATH saline Needle Type: Tuohy needle Injection Technique: continuous catheter Needle gauge: 17 Needle Length (cm): 10 cm Needle Insertion Depth (cm): 7 Catheter Gauge: 19 Catheter Type: multi-orifice Catheter at skin depth (cm): 16 Test Dose Result: negative and lidocaine 1.5% with epinephrine 1 to 200,000
--- NOTE | 2024-08-17 20:10 | P.OBPN_ITS ---
Subjective Date Seen: 08/17/24 Narrative: Roseanne choose to get an epidural and is now resting comfortably with it in place. She on Pitocin and is lena regularly. She was agreeable to a SVE and was 4/80/-1 with a bulging bag of fluid. We discussed AROM at this time but she declines as she is making cervical change. Can consider if dilation slows of stops. She denies questions or concerns at this time. Objective Vital Signs: Last Vital Signs Temp 98.7 F 08/17/24 12:03 Pulse 75 08/17/24 20:00 Resp 20 08/17/24 05:26 BP 121/71 08/17/24 20:00 Pulse Ox 96 08/17/24 19:32 Pelvic Exam Dilation (cm): 4 Effacement (%): 80 Station: -1 Contractions Monitor mode: External Contraction Frequency: 1.5-4 Contraction pattern: Regular Contraction intensity: Moderate Pitocin Rate (mU/min): 13 Assessment Assessment: induction ongoing Station: -1 Status: Category l Heart Rate Baseline: 125 Inverter And Clipper Variability: Moderate (6-25) Monitor Accelerations: Present Monitor Decelerations: Early Plan Plan: ASSESSMENT:? at 41.1 weeks gestation? GBS negative? Uncomplicated ? Postterm IOL? Blood type:?O+ ?? PLAN:? 1. Continue with Pitocin titration as appropriate 2. Epidural in place. Resting comfortably 4. Anticipate ? 6. IV in place and continuous monitoring per unit policy? 7. Encourage and assist with position changes to promote physiologic labor and .
[2024-08-18] VITALS (45 sets, daily range): BP systolic 98–160; BP diastolic 57–104; PULSE 72–122; RESP 16; TEMP 36.8–37.2; O2SAT 89–99
[2024-08-18] MEDS: ROPIVACAINE 0.2% 100 ml 100 ML 12 MG EPIDURAL (01:37)
[2024-08-18] MEDS: LACTATED RINGERS 1000 ML 1,000 ML 125 ML IV (02:55)
--- NOTE | 2024-08-18 04:14 | W.PM.OBVAGDE ---
OB Procedure Vag Delivery Mother Details Mother Details: Roseanne is a 23 year-old, 1, Para 0, admitted on 08/16/24 at 41.0 Days gestation. : 1 Para: 1 Weeks Gestation: 41.2 Admission Date: 08/16/24 Additional Details Amniotic Membrane Status: AROM Amniotic Membrane Rupture Date: 08/18/24 Amniotic Membrane Rupture Time: 02:10 Amniotic Membrane Fluid Description: Meconium Stained and Yellow Analgesia/Anesthesia Type: Epidural Waterbirth: No Pitcoin: Yes Intrapartal Events: Labor Induction and Prolonged Labor >20 Hrs Induction Method: per misoprostol protocol and per pitocin protocol Delivery augmentation: rupture of membranes Labor Onset: 23:38 Complete: 01:45 Pushin:13 Heart: heart tones during second stage were category 2. Baseline 120 with variable decels with and prolonged to 100 with . Maintained good variability and accelerations throughout. Delivery Details Delivery Date: 08/18/24 Delivery Time: 03:46 Route of delivery: Infant Gender: Male Infant Viability: Alive; Heart Rate Present Position at Delivery: OA Delivery Details: Patient was admitted for IOL at 41.0 weeks. She progressed with Cytotec followed by Pitocin and augmentation AROM at complete for a very bulging bag. AROM noted at 0210 with lightly stained meconium stained fluid. Peds was notified and was present for delivery. Patient was complete at 0145 and pushing at 0213. of a viable male at 0346 on her right side in the bed. Vertex delivered OA. No shoulder. Nuchal x1 easily reduced after delivery of the head on the perineum. Body delivered easily and without incident. Infant passed to mothers abdomen with a vigorous cry. Cord was clamped and cut at about 4 minutes due to increased bleeding. APGARS were 8 at one minute and 9 at five minutes respectively. Mouth was bulb suctioned. Intact placenta with a 3 vessel cord delivered spontaneously at 0353. Fundus firm. 1st identified, it was hemostatic and well approximated so decided not to repair with shared decision making. QBL 175 cc. Mother and baby stable; mother plans to breastfeed. Infant weight pending.? 1 Minute Interval Total Score: 8 5 Minute Interval Total Score: 9 Additional Details Shoulder Dystocia: No Placenta Delivery Time: 03:53 Placental Delivery Description: Spontaneous Procedure Done: Global Blood Loss: 175 Laceration: Perineal - 1st Degree (not repaired ) Episiotomy Description: None Blood Loss Measurement Type: QBL Bakri Used: No Sponge/Need Count Correct: Yes Cord Vessel Description: 3 Vessels, Nuchal Cord and Reduced Event Summary Status: Mother and were stable after delivery. Disposition: floor
[2024-08-18 04:41] LABS: Hematocrit 38.8 % (33.0-51.0); Hemoglobin* 12.8 gm/dL (12.0-16.0); Mean Corpuscular HGB Conc 33 gm/dL (32-36); Mean Corpuscular Hemoglobin 29 pg (26-34); Mean Corpuscular Volume 88 fL (80-100); Platelet Count* 168 K/uL (140-440); Red Blood Count 4.43 m/uL (4.00-5.20); White Blood Count* 14.46 K/uL (4.50-11.00)
[2024-08-18 04:48] LABS: Slide Review Reflex No
[2024-08-18 04:56] LABS: Alanine Aminotransferase* 13 U/L (4-35); Aspartate Amino Transferase* 21 U/L (12-35); Blood Urea Nitrogen* 11 mg/dL (5-24); Creatinine* 0.7 mg/dL (0.5-1.5); Est. Creatinine Clearance* 126.09; Estimated Glomerular Filt Rate 125 ml/min
[2024-08-18] MEDS: BENZOCAINE/MENTHOL SPRAY 85 GM AEROSOL 1 APPLIC TOPICAL (22:02)
[2024-08-19 00:03] LABS: Rapid Plasma Reagin (RPR) Non Reactive (Non Reactive)
[2024-08-19 01:55] VITALS: BP 110/72; PULSE 84; RESP 16; TEMP 36.6; O2SAT 97
[2024-08-19 05:56] VITALS: BP 118/75; PULSE 72; RESP 16; TEMP 36.6; O2SAT 97
--- NOTE | 2024-08-19 08:38 | P.DS_ITS ---
DS: Providers Provider Date Seen: 08/19/24 Date of admission: 08/16/24 15:52 Primary care physician: Not a Local Provider Admitting Clinician: Viki Sheehan CNM Attending Physician on discharge: Ofe Britton CNM DS: Diagnosis Discharge Diagnosis (1) care and examination immediately after delivery: Status: Acute (2) Lactating mother: Status: Acute (3) Elevated blood pressure reading without diagnosis of hypertension: Status: Acute Exam Narrative: Exam Narrative: GENERAL APPEARANCE:? normal affect, alert, no distress MOOD:? appropriate CHEST:? clear to auscultation HEART:? regular rate and rhythm ABDOMEN:? soft, non-tender the uterine fundus is At Umbilicus, Midline and is appropriate for the stage of recovery. PERINEUM:? mild edema of the perineum, there is a Perineal Laceration,?1st degree that is healing well. EXTREMITIES:? normal and no edema Const: Vital Signs, click to edit/add: Vital Signs - 24 hr 08/18/24 09:40 08/18/24 14:58 08/18/24 19:42 Temperature 98.8 F 98.6 F 98.5 F Pulse Rate [Pulse Oximeter] 96 75 79 Respiratory Rate 16 16 16 Blood Pressure [Le ft Arm] 119/71 121/69 109/70 Pulse Oximetry 96 96 96 Oxygen Delivery Me thod Room Air Room Air Room Air 08/19/24 01:55 08/19/24 05:56 Temperature 97.8 F 97.9 F Pulse Rate [Pulse Oximeter] 84 72 Respiratory Rate 16 16 Blood Pressure [Le ft Arm] 110/72 118/75 Pulse Oximetry 97 97 Oxygen Delivery Me thod Room Air Room Air Documenting provider has reviewed patient's vital signs: yes OB - DS: Summary Hospital Course Hospital Course: Roseanne is a 23 y.o. G 1 P 1 who was admitted to [facility] for post-dates. ?She had a NVD that was uncomplicated. The patient feels well. ?The pain is well controlled with current medications. ?She has no new complaints. ?She is breast feeding and reports things are going well. the patient has done well.? Vitals have been stable.? She has remained afebrile.? Has a good appetite, is tolerating a general diet. ?She is voiding without difficulty.? She is passing gas and has not had a bowel movement.? She is ambulating and denies any dizziness.? Has small amount of rubra lochia. She is planning condoms for prevention. Problems: none plan: Discharge home with baby. Follow up in 2 weeks and 6 weeks. , may see if needed Hgb 12.8. Elevated BP without diagnosis of HTN. Reviewed s/sx of pre-e and encouraged to call. Labs WNL Peripartum Data Infant delivery method: Vaginal Laceration description: Perineal - 1st Degree Infant Gender: Male Infant Discharge Plan: Home Status at Discharge Functional status at discharge: independent ambulation Overall status at discharge: patient is progressing back to baseline Time Spent with Patient Time attestation: Total time spent providing and/or coordinating discharge services: Time spent: Less than 30 minutes Discharge Plan Discharge Disposition: Home, Self-Care Date of Admission: 08/16/24 15:52 Attending Provider on Discharge: Ofe Britton Primary Care Provider: Provider,Not a Local Condition: Stable Anticipated Discharge Date/Time: 08/19/24 12:00 Discharge Medications: New docusate sodium 100 mg Capsule 100 mg PO DAILY Qty: 90 0RF acetaminophen 500 mg Tablet 1,000 mg PO Q6H PRNQty: 0 0RF ibuprofen 600 mg Tablet 600 mg PO Q6H PRNQty: 0 0RF Continued DHA 200 mg capsule 200 mg PO DAILY PRN Discharge Orders: Discharge Order (Routine); Ordered 08/19/24 Ordered By: Ofe Britton Patient Education: OB Vaginal/Breast Feeding, OB Over the Counter Medication Information Additional Instructions: Discharge instructions were reviewed with the patient including signs and symptoms of infection and home going medications Nothing vaginally for 6 weeks: no tampons or intercourse Off Work or School for 6 weeks Symptoms to report to doctor: * Bleeding that saturates more than one pad per hour * Passing clots larger than the size of a golf ball * Pain not relieved by prescribed medication * Fever above 100.4 degrees Fahrenheit * A foul vaginal odor * Difficulty in emotions, mood, and functions * Thoughts of hurting yourself and/or * Painful, reddened area in your breast * Any drainage, redness, or tenderness in your IV/epidural site * Severe headache that doesn't improve after taking medications * Changes in vision, including temporary loss of vision, blurred vision, and/or light sensitivity * Upper abdominal pain (usually under ribs on the right side) * Decrease in urination or painful, frequent urinating * Chest pain * Shortness of breath * Tenderness or pain with redness and/swelling in the calf(s) of your leg 2-week visit: discuss infant feeding concerns, review control options and screen for anxiety/depression. 6-week visit for an annual exam. consultation services are available to all mothers and babies for the first year after delivery.? To make an appointment, please call [phone]. Activity Level: Activity as Tolerated Follow Up Appointments: [facility] [Provider Group] Forms: [employer] Info Instructions
[2024-08-19 10:48] VITALS: BP 105/67; PULSE 84; RESP 14; TEMP 36.9; O2SAT 95
--- NOTE | 2024-08-20 13:01 | PM.ANPOST ---
Post Anesthesia Note Post Anesthesia Note Patient seen: Inpatient Respiratory Status: adequate Cardiovascular Status: adequate Mental Status: baseline Pain: adequate Temp: baseline Anesthetic awareness: N/A Complications: none Follow care: none
== END 2024-08-19 10:51 | disposition home or self-care (01) | DRG 806 ==
PROVIDERS: Admitting Provider Advanced Practice Midwife; Visit Provider Advanced Practice Midwife
DX: O48.0 Post-term pregnancy (principal); O63.9 Long labor, unspecified; O77.0 Labor and delivery complicated by meconium in amniotic fluid; R03.0 Elevated blood-pressure reading, without diagnosis of hypertension; O70.0 First degree perineal laceration during delivery; Z3A.41 41 weeks gestation of pregnancy; Z37.0 Single live birth
CPT/HCPCS: 01967; 36415; 59200; 82565; 84450; 84460; 84520; 85025; 85027; 86592; 86850; 86900; 86901; A9270; J2270; J2405; J2795; J3010; J7120

== ENCOUNTER 2024-09-17 12:32 | Emergency (ER) | payer OTHER, SELFPAY ==
[2024-09-17 13:35] VITALS: BP 112/73; PULSE 55; RESP 16; TEMP 37; O2SAT 97; BMI 31.2
--- NOTE | 2024-09-17 14:09 | ED.EYEPROB ---
HPI - Eye Problem General Chief complaint: Eye Problems Stated complaint: right eye pain Time Seen by Provider: 09/17/24 13:46 History of Present Illness HPI Narrative: This 24-year-old female comes in reporting right eye pain. She states that this began about 5 days ago. She does not report any discharge or episode where there was suspicion of a foreign object. She does not report any visual changes. She states that it seems to hurt more when she moves her eye looking left or right or up and down. She is wearing glasses and does have contacts but states that she has not worn them for a couple months. She did give to her 1st child about a month ago and is currently . Related Data Home Medications ?Medication ?Instructions ?Recorded ?Confirmed docosahexaenoic acid 200 mg 200 mg PO DAILY PRN 01/05/24 08/31/24 capsule ( DHA) Allergies Allergy/AdvReac Type Severity Reaction Status Date / Time amoxicillin Allergy Hives Verified 08/31/24 13:06 Penicillins Allergy Hives Verified 08/31/24 13:06 Review of Systems Status of ROS: Reports: 10 or more systems reviewed and unremarkable except as noted in History and below Narrative: Constitutional: No fevers, no weight gain or loss. Eyes: No discharge. No vision changes. Right eye pain as described above. HENT: No congestion, no sore throat, no ear pain. Cardiovascular: No chest pain, no palpitations. Respiratory: No shortness of breath, no wheezes, no cough. Gastrointestinal: No abdominal pain, no vomiting, no diarrhea. Genitourinary: No dysuria, no hematuria. Musculoskeletal: Normal range of motion. Skin: No rashes, no pruritis. Neurological: No dizziness, weakness, sensory change, speech change. Endo/Heme/Allergies: No bruising or bleeding. No polydipsia. Pysch: no suicidality, no anxiety, no insomnia. All other systems reviewed and are negative. [facility] Medical History (Updated 09/17/24 @ 14:14 by Red Brady MD) No significant past medical history Surgical History (Updated 08/19/24 @ 08:38 by Ofe Britton CNM) S/P laparoscopic appendectomy ?Z90.49 - Acquired absence of other specified parts of digestive tract (ICD-10) Family History (Updated 07/19/24 @ 08:29 by Viki Sheehan CNM) Father Diabetes, Onset Age: 49 Mother High cholesterol Paternal Grandmother Breast cancer, Onset Age: 30 Social History (Updated 01/05/24 @ 13:34 by Xiomy Davila PA-C) Narrative: Occupation: Office work. Marital status: . Zoroastrian/cultural needs: no. Chemical or radiation exposure: no. Pre- tobacco use: no. Pre- alcohol use: no. Current tobacco use: no. Current alcohol use: no. Recreational drug use: no. Dietary restrictions: no. Blood transfusion acceptable in an emergency: yes. PSYCHOSOCIAL HISTORY: History of depression or currently depressed: no. Current or past physical, emotional, or sexual mistreatment: no. Problems that will make it hard to make it to appointments: no. What is your current living situation?: I presently have a place to live Problems where you live: no known problems In the past 12 months, utilities in danger of being shut off: no In past 12 months, lack of transportation kept you from medical appts, meetings, work, or getting things needed for daily living: no In the past 12 mos, have been you worried that your food would run out before you had money to buy more?: never true In the past 12 mos, the food you bought just didn't last and you didn't have money to buy more?: never true Smoking Status: Never smoker Do you use any of these nicotine containing products: None Second hand tobacco smoke exposure: No How often do you have a drink containing alcohol: monthly or less How often do you have six or more drinks on one occasion: Never AUDIT-C Alcohol total score: 1 Non-prescribed substance use: denies use How often does anyone, including family, friends and others, physically hurt you: never How often does anyone, including family, friends and others, insult or talk down to you: never How often does anyone, including family, friends and others, threaten you with harm: never How often does anyone, including family, friends and others, scream or curse at you: never service: No Exam Narrative: Exam Narrative: Constitutional: Well-developed, well-nourished, no acute distress. HEENT: Normocephalic, atraumatic. Right eye is examined under magnification. There is no evidence purulence, ulceration, foreign object, or erythema. She does report some discomfort when moving her eye in its range of motion. Neck: Normal range of motion. Nontender. Supple. Heart: Intact distal pulses. Lungs: No chest discomfort. No wheezes, rhonchi, or rales. Abdomen: Nontender. Back: Normal range of motion. Extremities: Normal range of motion. No injury. Skin: Intact. No rash. Warm. No erythema or pallor. Neurologic: No altered sensation. No weakness. Alert and oriented. Psychiatric: No suicidality. No anxiety or depression. No insomnia. Nursing notes and vitals signs are reviewed. Const: Vital Signs, click to edit/add: Vital Signs - 24 hr 09/17/24 13:35 Temperature 98.6 F Pulse Rate [Pulse Oximeter] 55 L Respiratory Rate 16 Blood Pressure [Ri ght Upper Arm] 112/73 Pulse Oximetry 97 Oxygen Delivery Me thod Room Air Course Vital Signs Vital signs: Initial Vital Signs Temperature 98.6 F 09/17/24 13:35 Temperature Source Temporal Artery Scan 09/17/24 13:35 Pulse Rate 55 L 09/17/24 13:35 Respiratory Rate 16 09/17/24 13:35 Blood Pressure 112/73 09/17/24 13:35 Blood Pressure Mean 86 09/17/24 13:35 Blood Pressure Position Sitting 09/17/24 13:35 Pulse Oximetry 97 09/17/24 13:35 Oxygen Delivery Method Room Air 09/17/24 13:35 Vital Signs Temperature 98.6 F 09/17/24 13:35 Pulse Rate 55 L 09/17/24 13:35 Respiratory Rate 16 09/17/24 13:35 Blood Pressure 112/73 09/17/24 13:35 Pulse Oximetry 97 09/17/24 13:35 Oxygen Delivery Method Room Air 09/17/24 13:35 Temperature 98.6 F 09/17/24 13:35 Pulse Rate 55 L 09/17/24 13:35 Respiratory Rate 16 09/17/24 13:35 Blood Pressure 112/73 09/17/24 13:35 Pulse Oximetry 97 09/17/24 13:35 Oxygen Delivery Method Room Air 09/17/24 13:35 MDM - Eye Problem MDM Narrative Medical decision making narrative: This patient comes in with right eye pain as described above. She is not showing any sign of infection or foreign object. She does not have any visual changes and reports no nausea or vomiting symptoms. I did recommend that she follow-up with an ophthalmologic clinic appointment. She did receive a take-home prescription for flurbiprofen ophthalmic solution for symptomatic relief. Discharge Plan Discharge Clinical Impression: Acute eye pain Patient Disposition: Home, Self-Care Condition: Stable Additional Instructions: Follow-up with eye clinic for further evaluation and treatment. Use eyedrops as needed and directed. Return if worsening. Prescriptions: No Action DHA 200 mg capsule 200 mg PO DAILY PRN Follow Up/Referrals: Provider,Not a Local [Primary Care Provider] - Stand Alone Forms: SpeedDate Info Instructions
== END 2024-09-17 14:43 | disposition home or self-care (01) ==
PROVIDERS: Emergency Provider Emergency Medicine Emergency Medical Services
DX: H57.11 Ocular pain, right eye (principal)
CPT/HCPCS: 99283; 99284; A9270

== ENCOUNTER 2024-09-28 14:31 | Outpatient (CLI) | payer OTHER, SELFPAY | END 2024-09-28 14:32 | disposition home or self-care (01) | PROVIDERS: PCP Midwife; Visit Provider Midwife | DX: Z12.4 Encounter for screening for malignant neoplasm of cervix (principal) | CPT/HCPCS: 87624; 87625; 88141; 88142 ==